=== PATIENT | female | born 1970 | race Caucasian/White ===

== ENCOUNTER 2017-12-29 01:35 | Emergency (ER) | payer OTHER ==
--- NOTE | 2017-12-29 01:45 | ED Physician Documentation ---
General Adult - HISTORIAN Historian: patient - HPI Stated Complaint: wasp sting yesterday Chief Complaint: Insect Bite Onset: days ago (1) Timing: still present Severity: mild Further Comments: yes (wasp sting yesterday. She is allergic to bee stings. She states she started to feel like she had issues with her airway approx one hour ago. She denies any swelling in sting area. She has not tried any OTC meds . No other complaints) Last known Well Code/Unknown Code: Unknown - ROS CONST: no problems - PAST HX Past History: none Surgeries/Procedures: none Immunizations: UTD Allergies/Adverse Reactions: Allergies Allergy/AdvReac Type Severity Reaction Status Date / Time bee venom protein (honey bee) Allergy Severe Anaphylaxis Verified 12/29/17 02:03 Home Medications: Ambulatory Orders Medication Instructions Recorded Vitamin B Complex [Balanced B-50] 1 each PO DAILY 12/29/17 - SOCIAL HX Smoking History: cigarettes Alcohol Use: none Drug Use: none - FAMILY HX Family History: No - REVIEWED ASSESSMENTS Nursing Assessment Reviewed: Yes Vitals Reviewed: Yes General Adult Physical Exam - PHYSICAL EXAM GENERAL APPEARANCE: mild distress (anxious) EENT: eye inspection normal, pharynx normal NECK: normal inspection RESPIRATORY: no resp distress, chest non-tender, breath sounds normal CVS: reg rate & rhythm, heart sounds normal, equal pulses ABDOMEN: soft, normal bowel sounds RECTAL: normal exam SKIN: warm/dry, normal color EXTREMITIES: non-tender, normal range of motion, no evidence of injury, no edema NEURO: oriented X3, CN's nml as tested, motor nml, sensation nml, mood/affect nml, cognition normal Discharge Clincal Impression: Insect bite Qualifiers: Encounter type: initial encounter Qualified Code(s): W57.XXXA - Bitten or stung by nonvenomous insect and other nonvenomous arthropods, initial encounter Referrals: Keith Torres DO [Primary Care Provider] - 2 Days Additional Instructions: 1. Benadryl as directed on package for rash or other symptoms of allergy 2. 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 Watch areas of skin for increase in redness or swelling 4. Return to ER for increasing concerns Condition: Stable Disposition: 01 HOME, SELF-CARE Decision to Admit: NO Date of Decison to Admit: 12/29/17 Decision Time: 02:48
[2017-12-29] MEDS: diphenhydrAMINE HCL 25 MG TABLET PO ONE (01:56)
[2017-12-29] MEDS: predniSONE 20 MG TABLET PO ONE (01:56)
[2017-12-29 02:27] VITALS: BP 116/69
== END 2017-12-29 02:40 | disposition home or self-care (01) ==
LOC: ED 01:35
DX: R13.10 Dysphagia, unspecified (principal); T63.441A Toxic effect of venom of bees, accidental (unintentional), initial encounter; W57.XXXA Bitten or stung by nonvenomous insect and other nonvenomous arthropods, initial encounter; Y92.9 Unspecified place or not applicable; Y93.9 Activity, unspecified; Y99.9 Unspecified external cause status
CPT/HCPCS: Q0163

== ENCOUNTER 2018-12-02 19:39 | Emergency (ER) | payer OTHER ==
[2018-12-02 19:56] VITALS: BP 131/78
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
--- NOTE | 2018-12-02 23:34 | Diagnostic Imaging Report ---
KARTHIK DUMONT [facility] [address] [id number] Report Submission Date: Dec 02, 2018 8:53:40 PM CDT Patient Study Name: LIBRADO ARSHAD Date: Dec 02, 2018 8:21:46 PM CDT Modality Type: DX Gender: F Description: FOOT 3 VIEWS OR MORE : 68 Institution: [facility] Physician: KARTHIK DUMONT Left foot three views History: Dorsal foot pain Findings: The left foot is unremarkable without fracture, dislocation, arthropathy, or focal bone lesion. Electronically signed on Dec 02, 2018 8:53:40 PM CDT by: Sanford LORA
== END 2018-12-02 21:30 | disposition home or self-care (01) ==
LOC: ED 19:39
DX: S99.922A Unspecified injury of left foot, initial encounter (principal); W22.8XXA Striking against or struck by other objects, initial encounter
CPT/HCPCS: 73630; 99282